=== PATIENT | female | born 1950 | race Caucasian/White ===

== ENCOUNTER 2017-05-04 16:40 | Emergency (ER) | payer OTHER ==
[2017-05-04 18:01] LABS: ADD UMIC YES; UR ASCORBIC ACID NEGATIVE (NEGATIVE); UR BILIRUBIN (Dip) NEGATIVE (NEGATIVE); UR BLOOD (Dip) 3+ mg/dL (NEGATIVE); UR CLARITY CLOUDY (CLEAR); UR COLOR YELLOW (YELLOW); UR GLUCOSE (Dip) NEGATIVE (NEGATIVE); UR KETONES (Dip) NEGATIVE (NEGATIVE); UR LEUKOCYTE ESTERASE (Dip) 3+ Leu/ul (NEGATIVE); UR NITRITE (Dip) NEGATIVE (NEGATIVE); UR RBC 157 /HPF (0-5); UR SPECIFIC GRAVITY (Dip) 1.009 (1.003-1.030); UR TOTAL PROTEIN (Dip) 2+ mg/dl (NEGATIVE); UR UROBILINOGEN (Dip) NEGATIVE (NEGATIVE); UR WBC > 182 /HPF (0-5)
[2017-05-04] MEDS: LIDOCAINE 1% (MDV) 20 ML INJ SC (18:34)
[2017-05-04] MEDS: CEFTRIAXONE 1 GM INJ IM (18:34)
== END 2017-05-04 18:45 | disposition home or self-care (01) ==
LOC: FTE 16:40
DX: R30.0 Dysuria (principal); Z85.42 Personal history of malignant neoplasm of other parts of uterus
CPT/HCPCS: 81001; 96372; 99284-25